=== PATIENT | female | born 1995 | race Caucasian/White ===

== ENCOUNTER 2017-05-06 09:09 | Outpatient (CLI) | payer OTHER | END 2017-05-06 11:40 | disposition home or self-care (01) | LOC: OBT 09:09 → L-D 09:10 → OBT 11:40 | DX: O48.0 Post-term pregnancy (principal); Z3A.40 40 weeks gestation of pregnancy | CPT/HCPCS: 76815; 76818 ==

== ENCOUNTER 2017-05-07 19:44 | Inpatient (IN) | payer OTHER ==
[2017-05-07] MEDS ORDERED: LACTATED RINGER'S 1,000 ML IV (21:29)
[2017-05-07] MEDS ORDERED: METHYLERGONOVINE 0.2 MG INJ IM (21:30)
[2017-05-07] MEDS ORDERED: BUTORPHANOL 2 MG INJ IV ×2 (21:30)
[2017-05-07] MEDS ORDERED: LIDOCAINE 1% (MPF) 30 ML INJ INJ (21:30)
[2017-05-07] MEDS ORDERED: MISOPROSTOL 200 MCG TAB PR (21:30)
[2017-05-07] MEDS ORDERED: CARBOPROST 250 MCG INJ IM (21:30)
[2017-05-07] MEDS ORDERED: OXYTOCIN 30 UNITS/LR 500 ML IV (21:30)
[2017-05-07] MEDS: LACTATED RINGER'S 1,000 ML IV (21:45)
[2017-05-07] MEDS: MISOPROSTOL 25 MCG CAPSULE PO (22:13)
[2017-05-07 22:21] LABS: ADD MAN DIFF? NO
[2017-05-07 22:23] LABS: BASOPHILS % 0.4 % (0.0-2.0); EOSINOPHILS # 0.2 10^3/ul (0.0-0.5); EOSINOPHILS % 1.3 % (0.0-7.0); HEMATOCRIT 32.6 % (37.0-47.0); HEMOGLOBIN 11.2 g/dl (12.0-16.0); LYMPHOCYTES # 2.5 10^3/ul (0.8-2.9); LYMPHOCYTES % 22.5 % (18.0-55.0); MEAN CORPUSCULAR HGB CONC 34.4 g/dl (32.0-37.0); MEAN CORPUSCULAR VOLUME 87.4 fl (72.0-104.0); MEAN PLATELET VOLUME 10.5 fl (7.4-10.4); MONOCYTE # 0.7 10^3/ul (0.3-0.9); MONOCYTES % 6.3 % (0.0-13.0); NEUTROPHIL # 7.7 10^3/ul (1.6-7.5); NEUTROPHILS % 69.1 % (30.0-74.0); PLATELET COUNT 247 10^3/UL (140-415); RED BLOOD COUNT 3.73 10^6/ul (4.20-5.40); RED CELL DISTRIBUTION WIDTH 12.8 % (11.5-14.5)
[2017-05-07 22:23] LABS: WHITE BLOOD COUNT 11.2 10^3/ul (4.8-10.8)
[2017-05-07 22:44] LABS: INR 0.93; PROTIME 12.5 Sec (11.9-14.9)
[2017-05-07 22:45] LABS: PARTIAL THROMBOPLASTIN TIME 27.5 Sec (25.0-35.0)
[2017-05-07 23:14] LABS: HEPATITIS B SURFACE ANTIGEN NEGATIVE (NEGATIVE)
[2017-05-08] MEDS: MISOPROSTOL 25 MCG CAPSULE PO ×4 (02:10→13:00)
[2017-05-08] MEDS: LACTATED RINGER'S 1,000 ML IV ×4 (06:17→22:29)
[2017-05-08] MEDS: OXYTOCIN 30 UNITS/LR 500 ML IV (09:26)
[2017-05-08 14:59] LABS: RAPID PLASMA REAGIN NONREACTIVE (NR)
[2017-05-08] MEDS ORDERED: FENTAnyl 2MCG/ML-ROPIV 0.2% 100 ML (17:29)
[2017-05-08] MEDS ORDERED: ONDANSETRON 4 MG INJ IV (18:30)
[2017-05-08] MEDS ORDERED: DIPHENHYDRAMINE 50 MG INJ IV (18:30)
[2017-05-08] MEDS ORDERED: TRIMETHOBENZAMIDE 100 MG/ML VIAL IM (18:30)
[2017-05-08] MEDS ORDERED: NALOXONE (0.4 MG/ML) INJ IV (18:30)
[2017-05-08] MEDS: FENTAnyl 2MCG/ML-ROPIV 0.2% 100 ML BAG EPI ×2 (18:34→23:05)
[2017-05-09] MEDS: OXYTOCIN 30 UNITS/LR 500 ML IV ×4 (04:31→10:20)
[2017-05-09] MEDS: FENTAnyl 2MCG/ML-ROPIV 0.2% 100 ML BAG EPI (05:54)
[2017-05-09] MEDS: LACTATED RINGER'S 1,000 ML IV (07:57)
[2017-05-09] MEDS ORDERED: HYDROCODONE/APAP (5/325) TAB PO (10:30)
[2017-05-09] MEDS ORDERED: ONDANSETRON 4 MG INJ IV (10:30)
[2017-05-09] MEDS ORDERED: DIBUCAINE 1% 30 GM OINT TOP (10:30)
[2017-05-09] MEDS ORDERED: ACETAMINOPHEN 325 MG TAB PO (10:30)
[2017-05-09] MEDS ORDERED: OXYCODONE/ASPIRIN (4.88/325) TAB PO ×2 (10:30)
[2017-05-09] MEDS ORDERED: LANOLIN 7 GM TUBE TOP (10:30)
[2017-05-09] MEDS: IBUPROFEN 600 MG TAB PO ×2 (11:58→17:19)
[2017-05-09] MEDS: WITCH HAZEL/GLYCERIN PAD PR (12:35)
[2017-05-09] MEDS: BENZOCAINE 20% 56 ML SPRAY TOP (12:35)
[2017-05-09] MEDS: HYDROCODONE/APAP (5/325) TAB PO (20:55)
[2017-05-10] MEDS: IBUPROFEN 600 MG TAB PO ×5 (00:50→23:34)
[2017-05-10] MEDS: SENNA/DOCUSATE NA (8.6MG/50MG) TAB PO ×2 (08:03→21:21)
[2017-05-10] MEDS: HYDROCODONE/APAP (5/325) TAB PO (08:03)
[2017-05-10 10:15] LABS: ADD MAN DIFF? NO
[2017-05-10 10:18] LABS: WHITE BLOOD COUNT 11.9 10^3/ul (4.8-10.8)
[2017-05-10 10:18] LABS: BASOPHILS % 0.3 % (0.0-2.0); EOSINOPHILS # 0.2 10^3/ul (0.0-0.5); EOSINOPHILS % 1.5 % (0.0-7.0); HEMATOCRIT 29.4 % (37.0-47.0); HEMOGLOBIN 10.1 g/dl (12.0-16.0); LYMPHOCYTES # 2.1 10^3/ul (0.8-2.9); LYMPHOCYTES % 17.3 % (18.0-55.0); MEAN CORPUSCULAR HEMOGLOBIN 30.5 pg (29.0-33.0); MEAN CORPUSCULAR HGB CONC 34.4 g/dl (32.0-37.0); MEAN CORPUSCULAR VOLUME 88.8 fl (72.0-104.0); MEAN PLATELET VOLUME 10.6 fl (7.4-10.4); MONOCYTE # 0.5 10^3/ul (0.3-0.9); NEUTROPHIL # 9.1 10^3/ul (1.6-7.5); NEUTROPHILS % 76.6 % (30.0-74.0); PLATELET COUNT 191 10^3/UL (140-415); RED BLOOD COUNT 3.31 10^6/ul (4.20-5.40); RED CELL DISTRIBUTION WIDTH 13.2 % (11.5-14.5)
[2017-05-11] MEDS: IBUPROFEN 600 MG TAB PO ×3 (05:36→17:36)
[2017-05-11] MEDS: SENNA/DOCUSATE NA (8.6MG/50MG) TAB PO (08:57)
[2017-05-11] MEDS: MEASLES,MUMPS,RUBELLA VACCINE INJ SC* (09:00)
== END 2017-05-11 18:05 | disposition home or self-care (01) | DRG 775 ==
LOC: PP1 05-09 10:33 → L-D 19:44
PROVIDERS: Obstetrics & Gynecology
PROC: 3E033VJ Introduction of Other Hormone into Peripheral Vein, Percutaneous Approach (ICD-10-PCS; 2017-05-07)
PROC: 10E0XZZ Delivery of Products of Conception, External Approach (ICD-10-PCS; principal; 2017-05-09)
PROC: 0HQ9XZZ Repair Perineum Skin, External Approach (ICD-10-PCS; 2017-05-09)
DX: O70.0 First degree perineal laceration during delivery (principal); Z37.0 Single live birth; Z3A.40 40 weeks gestation of pregnancy
CPT/HCPCS: 62319; 85025; 85610; 85730; 86592; 86850; 86900; 86901; 87340